=== PATIENT | female | born 1935 | race Caucasian/White ===

== ENCOUNTER 2016-07-26 16:36 | Inpatient (IN) | payer MEDICARE ==
[~2016-07-26] VITALS: Ht 167.6 cm; Wt 77.0 kg
[~2016-07-26 16:36] MED LIST: ACET650T12 PO; ALLO100T PO; ASPI81CH PO; BISA10SU4 PR; CITA20TA4 PO; FLEEENE4 PR; GABA-279 PO; IBUP-1114 PO; LIDO1OIN2 TOP; MELA5TAB14 PO; METO50TA2 PO; MIRA3350 PO; MOM30SS PO; OXYB5TAB PO; PROT1TAB2 PO; ROCA0.25 PO; SODI200S PO; VITA500C3 PO; ZITHTAB PO; [UNRECOGNIZED DRUG - CODE] XX; [UNRECOGNIZED DRUG - OTHER] PO
[2016-07-26] MEDS ORDERED: OXYB5TAB PO (17:09)
[2016-07-26] MEDS ORDERED: METO25TA PO (17:09)
[2016-07-26] MEDS ORDERED: CLAR10CA3 PO (17:09)
[2016-07-26] MEDS ORDERED: ALBU0.63 INH (17:09)
[2016-07-26] MEDS ORDERED: HYDR-3713 PO (17:09)
[2016-07-26] MEDS ORDERED: NYST100024 TOP (17:09)
[2016-07-26] MEDS ORDERED: ULOR80TA PO (17:09)
[2016-07-26] MEDS ORDERED: BUME2TAB PO (17:09)
[2016-07-26] MEDS ORDERED: ZOFR20TA PO (17:09)
[2016-07-26] MEDS ORDERED: SPIR25TA2 PO (17:09)
[2016-07-26] MEDS ORDERED: BISC10SU PR (17:09)
--- NOTE | 2016-07-26 17:33 | REP ---
Chest one-view HISTORY: Altered mental status Comparison: 06/26/2016 There is poor inspiratory effort. There is elevation of the right hemidiaphragm. The lungs are clear. The cardiac silhouette is enlarged. The pulmonary vasculature is normal in appearance. Impression: Cardiomegaly. Signed by Chele Hung MD 07/26/2016 05:25 P
[2016-07-26 17:44] LABS: MEAN CORPUSCULAR HEMOGLOBIN 32.9 pg (27.0-33.0); MEAN CORPUSCULAR HGB CONC 30.6 g/dl (32.0-36.5); MEAN CORPUSCULAR VOLUME 107.5 fl (80.0-96.0); PLATELET COUNT, AUTOMATED 123 k/mm3 (150-450); RED CELL DISTRIBUTION WIDTH 16.1 % (11.5-14.5); WHITE BLOOD COUNT 5.3 K/mm3 (4.0-10.0)
[2016-07-26] MEDS ORDERED: MELA3TAB PO (18:09)
[2016-07-26] MEDS ORDERED: ANEC4CRE3 TOP (18:09)
[2016-07-26 18:10] LABS: EOSINOPHILS 5 % (0-5)
[2016-07-26 18:11] LABS: ANISOCYTOSIS 1+; HYPOCHROMASIA 1+
[2016-07-26] MEDS ORDERED: METO25TAB PO (18:11)
[2016-07-26] MEDS ORDERED: ACET50TAOT PO (18:14)
[2016-07-26 18:22] LABS: ALBUMIN/GLOBULIN RATIO 0.91 (1.00-1.93); BILIRUBIN,DIRECT 0.2 MG/DL (0.0-0.2); BILIRUBIN,TOTAL 0.4 MG/DL (0.2-1.0); CALCIUM LEVEL 8.4 MG/DL (8.8-10.2); CREATININE FOR GFR 3.68 MG/DL (0.55-1.02); GLOMERULAR FILTRATION RATE 12.6 (>32); MAGNESIUM LEVEL 2.5 MG/DL (1.8-2.4); PHOSPHORUS LEVEL 7.3 MG/DL (2.5-4.9); POTASSIUM SERUM 5.1 MEQ/L (3.5-5.1); TOTAL PROTEIN 6.3 GM/DL (6.4-8.2)
[2016-07-26] MEDS ORDERED: ONDANSETRON 4MG/2ML VIAL (J2405) IV PRN (20:15)
[2016-07-26] MEDS ORDERED: BISACODYL 5 MG TAB PO PRN (20:15)
[2016-07-26] MEDS ORDERED: ACETAMINOPHEN TAB 650MG DOSE (2X325MG) PO PRN (20:15)
[2016-07-26] MEDS ORDERED: FLEET ENEMA PR PRN (20:30)
[2016-07-26] MEDS ORDERED: ALBUTEROL SULFATE 2.5 MG/0.5 ML INH NEB SOLN INH PRN (20:30)
[2016-07-26 20:38] LABS: THYROXINE (T4) 8.7 UG/DL (4.5-12.0)
[2016-07-26] MEDS: METOPROLOL TART 25 MG TABLET PO SCH (21:00)
[2016-07-26 22:05] VITALS: BP 120/59
--- NOTE | 2016-07-26 23:01 | HPE ---
DATE OF ADMISSION: 07/26/2016 PRIMARY CARE PHYSICIAN: Dr. Pelaez PILING CUTTER: Vernon Noble MD CHIEF COMPLAINT: Abnormal renal function. HISTORY OF PRESENT ILLNESS: Ms. James is an 80-year-old female with multiple past medical history who admitted to the hospital due to abnormal renal function. Patient is from snf at [facility] and was seen by nephrology on Sunday when they performed lab work. Patient expressed that today she received a phone call from Dr. Noble's office asking her to come to the emergency room (ER) due to abnormal lab work regarding her renal function. Patient expressed that for the past 2 weeks she has been experiencing fatigue and tiredness. Patient does not have fluid restriction and she expressed that she drinks a lot of fluids during the day. According to patient's daughter, she has been experiencing edema in her lower extremities and for the past month which became worse. Patient also expressed that she has been gaining weight, about 10-15 pounds since June. Patient denies having hematuria, however she expressed that she has some burning sensation at the beginning of urination. She also has urinary incontinence. Patient denies fever, chills, or night sweats. Patient also denies lightheadedness, vision or hearing changes. Patient denies any syncopal episodes. However, patient expressed that she feels weak all over her body for the past 2 weeks. Patient also has pulsating mass on the right upper forehead area which is related to an aneurysm which she believes that it became larger for past month. PAST MEDICAL HISTORY: 1. Peptic ulcer disease with gastrointestinal (GI) bleed about 30 years. 2. Coronary artery disease status post coronary artery bypass graft about 12 years ago. 3. Aneurysm. 4. CVA with right-sided hemiparesis. 5. Chronic kidney disease stage IV. 6. Hypertension. 7. History of kidney stones. 8. History of tobacco abuse. 9. Anxiety. 10. History of gout. ALLERGIES: 1. PENICILLIN. 2. QUINOLONES. 3. SERTRALINE. 4. LASIX. 5. INDOMETHACIN. 6. CLINDAMYCIN. 7. CARBAMAZEPINE. HOME MEDICATIONS: - acetaminophen 1000 mg by mouth twice a day - acetaminophen/hydrocodone one tablet by mouth nightly - albuterol one vial inhalation every 2 hours as needed for shortness of breath - AneCream 4% one dose topically twice a day - vitamin C 500 mg by mouth every evening - aspirin 81 mg by mouth daily - Biscolax 10 mg per rectum daily as needed for constipation - bumetanide 2 mg by mouth twice a day - calcitriol 0.25 mcg by mouth three times a week - Uloric 80 mg by mouth daily - gabapentin 100 mg by mouth three times a day - Claritin 10 mg by mouth every 2 days - melatonin 3 mg by mouth nightly - metolazone 2.5 mg by mouth twice a day - metoprolol tartrate 25 mg by mouth twice a day - nystatin powder one dose topically daily - Zofran 4 mg by mouth every 6 hours as needed for nausea or vomiting - oxybutynin 5 mg by mouth daily - MiraLax one packet by mouth every evening - Fleet enema 7-19 grams/118 mL as needed for constipation - spironolactone 25 mg by mouth twice a day FAMILY HISTORY: Patient had two brothers and one sister who due to blood clot, alcoholism, and suicide. Patient has five children, four sons and one daughter, one of the sons has a stent. SOCIAL HISTORY: Patient lives in a snf at [facility]. Patient stopped smoking 3 years ago, however patient started smoking at age 48 and on average she smoked about 2.5 packs per day. Patient denies illicit drug use or history of alcoholism or alcohol usage. Patient has not traveled outside of [facility]. Patient does not have any pets. REVIEW OF SYSTEMS: GENERAL: Patient denies fever, chills, night sweats. Patient has gained about 10-15 pounds over the past month. HEENT: Patient denies acute vision or hearing changes. Patient denies headache , however patient has pulsating mass on the right side of the forehead which, according to her, for the past month the size has increased. NECK: Patient denies lumps, bumps, or decreased motion of her neck. HEART: Patient denies palpitations, racing or skipping heart beat, or chest pain. LUNGS: Patient expressed that she has mild shortness of breath when she lays down, however patient denies coughing. ABDOMEN: Patient denies abdominal pain, nausea, vomiting, diarrhea, constipation, melena, hematochezia, or hemoptysis. NEUROLOGIC: Patient has a history of CVA with right-sided hemiparesis. However , patient denies having seizure-type activities. PHYSICAL EXAMINATION: VITAL SIGNS: Temperature 97.9, pulse 52, respiratory rate 16, blood pressure 128/58, pulse oximetry 100% on 4 liters nasal cannula. GENERAL APPEARANCE: Patient was lying in bed, in no acute distress. Patient was awake. NECK: Jugular venous distention (JVD) cannot be assessed due to extended neck. HEENT: Normocephalic, atraumatic. Pupils are equal. Oral mucous moist. HEART: Regular rate and rhythm, normal S1, S2. LUNGS: Patient has scattered rhonchi at the base of the lung. Good air movement. ABDOMEN: Soft, nontender. Positive bowel sounds in all quadrants. EXTREMITIES: Patient has mild pitting edema in both lower extremities. Patient has normal range of motion on the left lower extremity and both upper extremities, however right lower extremity range of motion has decreased. NEUROLOGIC: Cranial nerves II-XII was intact. Patient has mild sensory deficit on the right lower extremity, possibly secondary to stroke. SKIN: Patient has decubitus ulcer in the mid sacrum area with serosanguineous drainage. LABORATORY DATA: White blood cells 5.3, red blood cells 3.51, hemoglobin 11.4, hematocrit 37.7, MCV 107.5, MCH 32.9, MCHC 33.6, RDW 16.1, platelet count 123, neutrophil percentage 51, lymphocyte percentage 36, monocyte percentage 4, eosinophil percentage 5, atypical lymphocytes 4. Sodium 138, potassium 5.1, chloride 106, carbon dioxide 22, anion gap 10, BUN 104, creatinine 3.68, glomerular filtration rate 12.6, fasting glucose 111, calcium 8.4, phosphorous 7.3, magnesium 2.5, total bilirubin 0.4, direct bilirubin 0.2, AST 36, ALT 23, alkaline phosphatase 145, total protein 6.3, albumin 3, TSH 5.880. Urinalysis result is pending at this time. IMAGING: Chest xray which indicated cardiomegaly. ASSESSMENT AND PLAN: 1. Acute on chronic kidney disease. This is possibly secondary to medications including spironolactone and metolazone. she has been diagnosed with stage IV kidney disease. Patient's creatinine is increased compare to baseline and her GFR has decreased. Dr. Jose has been consulted. I will hold spironolactone and metolazone due to abnormal renal function. 2. Coronary artery disease. We will continue patient on aspirin and metoprolol. 3. Diastolic congestive heart failure: patient was on diuretics however I hold them due to worsening renal function.patient is euvolemic at this time. I will continue patient on metoprolol. 4. History of gout. We will continue patient on Uloric 80 mg by mouth daily. 5. Hypertension. We have held spironolactone and metolazone due to abnormal renal function, however we will continue patient on metoprolol 25 mg by mouth twice a day. 6. Deep venous thrombosis (DVT) prophylaxis. Patient is on heparin 5000 units subcutaneous every 8 hours. 7. Allergies. Patient is on loratadine 10 mg by mouth every 2 days. 8. Shortness of breath, possibly secondary to chronic obstructive pulmonary disease (COPD). At this time patient is stable. We will continue patient on current breathing treatment. 9. Anemia. This is possibly secondary to chronic kidney disease. Nephrology has been consulted and will make a decision regarding using medication such as aranesp. My preceptor for this patient encounter was Dr. Lona Collins. The preceptor was physically present in the building during the encounter and was fully available. As needed, all aspects of the patient interview, examination, medical decision making process, and medical care plan development were reviewed and approved by the preceptor. The preceptor is aware and concurs with the plan as stated in the body of this note and will attest to such by her cosignature. NARCISA
--- NOTE | 2016-07-26 23:30 | CR ---
DATE OF CONSULTATION: 07/26/2016 REQUESTING PHYSICIAN: Dr. Gray Rodriguez CONSULTING PHYSICIAN: Dr. Héctor Jose REASON FOR CONSULTATION: Management of acute kidney failure superimposed on chronic kidney disease stage IV. CHIEF COMPLAINT: Patient was sent by ground crewman mission support for abnormal labs and worsening renal failure. HISTORY OF PRESENT ILLNESS: Allyson James is an 80-year-old female with past medical history of chronic kidney disease stage IV with baseline creatinine of around 2.3 as of last month. She has multiple other comorbidities including congestive heart failure, hypertension, coronary artery disease. She was last seen in nephrology office on 07/19/2016. At that time she was having anasarca, she had gained a lot of weight. Because of the worsening edema, patient's diuretic dose was increased. She was asked to take Bumex twice a day, metolazone was also added to the regimen, and spironolactone dose was also increased. Patient started taking the diuretics. She did report that her lower extremity edema and generalized anasarca did significantly improve with the medications. Patient got followup labs done in [place] and the labs showed that her creatinine had bumped up to 3.5, her BUN was 98, so patient was sent to emergency room by nephrology office for further management of acute renal failure. Patient personally reports that her appetite is not good. She does report that her edema has improved. She denies any chest pain, shortness of breath, palpitations, nausea, vomiting, confusion, dizziness, or lightheadedness. Patient was examined by me today in the emergency room. She was laying in the bed, she was comfortable, in no apparent distress. PAST MEDICAL HISTORY: Patient has a past medical history of: 1. Chronic kidney disease stage IV, baseline creatinine of around 2.3. 2. Hyperparathyroidism. 3. Anemia of chronic disease. 4. Hypertension. 5. Coronary artery disease status post coronary artery bypass graft (CABG) in 2001. 6. Left hemiparesis. 7. Atrial fibrillation. 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 FAMILY HISTORY: Her mother because of natural causes. There is no history of end-stage renal disease requiring hemodialysis. SOCIAL HISTORY: Patient is . She lives at a alf in [place]. She is a former smoker. She denies any alcohol abuse or drug abuse. REVIEW OF SYSTEMS: CONSTITUTIONAL: Patient denies any fevers, chills, or fatigue. EYES: She denies any blurry vision or double vision. EARS, NOSE, THROAT (ENT); Patient denies any ear discharge, dysphagia, or odynophagia. CARDIOVASCULAR: Patient reports history of aortic valve replacement, but she denies any palpitations or chest pain. RESPIRATORY: Patient denies any cough. She does report dyspnea on mild exertion. She denies any orthopnea. GASTROINTESTINAL (GI): Patient denies any nausea or vomiting, but she reports decreased appetite. GENITOURINARY: Patient denies any dysuria or hematuria. MUSCULOSKELETAL: Patient reports that she had leg swelling which is getting better and she wears Amaury wraps on bilateral lower extremities. SKIN: Denies any rashes. She does report a left leg ulcer because of edema which is healing. CENTRAL NERVOUS SYSTEM (STOPPER GRINDER): Patient reports history of CVA and history of right-sided craniotomy because of hemorrhagic CVA. PSYCHIATRIC: Denies any history of depression or anxiety. ENDOCRINE: Patient denies diabetes but she does have hyperparathyroidism. HEMATOLOGICAL/ONCOLOGICAL: Patient denies any bruising tendency or anemia. She denies any history of cancers. All other review of systems is negative. ALLERGIES: Patient is allergic to CIPRO, CLINDAMYCIN, VANCOMYCIN, PENICILLIN, TEGRETOL, and ZOLOFT. HOME MEDICATIONS: - Tylenol as needed - albuterol as needed - aspirin 81 mg by mouth daily - bisacodyl 10 mg as needed - Bumex 2 mg one tablet by mouth twice a day - calcitriol 0.25 mcg Sunday, Sunday, Sunday - Fleet enema as needed - gabapentin 100 mg by mouth three times a day - lidocaine patch as needed - loratadine 10 mg by mouth every day - melatonin 3 mg by mouth daily - metolazone 2.5 mg by mouth twice a day - metoprolol 25 mg by mouth twice a day - MiraLax 17 grams daily - oxybutynin 5 mg by mouth daily - spironolactone 25 mg by mouth twice a day - Uloric 80 mg by mouth daily - vitamin C 500 mg by mouth daily - vitamin D 50,000 units once a month - Zofran 4 mg every 6 hours as needed PHYSICAL EXAMINATION: VITAL SIGNS: Temperature 97.2 degrees Fahrenheit, blood pressure 132/63, pulse 56, respiratory rate 16, saturating 96% on nasal cannula at 2 liters. HEAD and NECK EXAM: Extraocular muscles intact. Pupils equally round and reactive to light. Mucous membranes are moist. Neck is supple, there is no significant jugular venous distention (JVD). Patient has a defect at the right temporal region craniotomy site which is pulsating with a heart beat. CARDIOVASCULAR: S1, S2. Patient has a mechanical aortic valve. Otherwise no murmur, rub, or gallop. RESPIRATORY: Chest is clear to auscultation bilaterally. Bilateral equal air entry. No rales or rhonchi. ABDOMEN: Soft, positive bowel sounds, nontender. No ascites. No organomegaly. EXTREMITIES: No clubbing or cyanosis. Patient has 1+ edema of the bilateral lower extremities and extremities are wrapped in dressings and she has small ulceration of the left leg as well. STOPPER GRINDER: Patient has slight left-sided hemiparesis. Otherwise, she is awake, alert , oriented times three. No asterixis at this time. PSYCHIATRIC: Normal mood and affect. SKIN: No rashes and no ulcerations apart from the ulceration on the left leg. LABORATORY REVIEW: CBC showed WBC 5.3, hemoglobin 11.5, platelets 123. BMP showed sodium 138, potassium 5.1, chloride 106, bicarbonate 22, BUN 104, creatinine 3.68, GFR 12.6, calcium 8.4, phosphorous 7.3, magnesium 2.5, albumin 3, TSH 5.8, free T4 is 3. IMAGING: A chest xray done today in the emergency room showed poor inspiratory effort, cardiomegaly, otherwise the pulmonary vasculature was normal in appearance. ASSESSMENT: 80-year-old female with past medical history of chronic kidney disease stage IV, chronic diastolic congestive heart failure, hypertension, coronary artery disease status post coronary artery bypass graft (CABG), admitted at this time because of acute kidney injury superimposed on chronic kidney disease stage IV. PLAN: 1. Acute kidney injury superimposed on chronic kidney disease stage IV. Patient's baseline creatinine is 2.3. Creatinine in the emergency room today is 3.6, it is most likely secondary to aggressive diuresis with Bumex, spironolactone, and metolazone. I am going to hold all the diuretics at this time. I would not hydrate the patient. However, I would see if by holding the diuretics her renal function starts improving. There are no overt signs of uremia. Electrolytes are acceptable. No urgent need to do hemodialysis. I would observe the patient for the next 24-48 hours for improvement of the renal function. If the renal function does not improve, then patient will need to start hemodialysis. 2. Diastolic congestive heart failure. Patient reports that she was significantly volume overloaded and diuretics have helped her a lot. However, because of the aggressive diuresis patient's renal function is worse than her baseline. I am going to hold the diuretics at this time. Patient's volume status is well-optimized. Continue the metoprolol at this time. Continue to monitor daily intake and output and 24 hour urine output as well. 3. Chronic gout secondary to chronic kidney disease. Continue current dose of Uloric 80 mg by mouth daily. 4. Secondary hyperparathyroidism. Continue current dose of calcitriol 0.25 mcg by mouth Sunday, Sunday, Sunday. 5. Chronic kidney disease-mineral bone disease. The patient has hyperphosphatemia. I am going to start the patient on Renvela 1600 mg by mouth three times a day with meals. Please hold Fleet enema because it has a lot of phosphorous and it can cause further worsening of the renal failure. 6. Anemia in chronic kidney disease. Patient's hemoglobin is 11.5. No need of Aranesp administration at this time, however I am going to check the iron levels on this patient tomorrow morning. Thank you for involving us in the care of this patient. We shall be happy to follow the patient along with you tomorrow morning. Plan of care was discussed with the primary medical team, medical education manager, and with the patient's nurse at bedside in the emergency room. NARCISA
[2016-07-27] MEDS: HEPARIN SOD (PORCINE) 5000 UNITS/ML VIAL SC SCH ×4 (00:10→22:00)
[2016-07-27] MEDS: GABAPENTIN 100 MG CAP PO SCH ×4 (00:11→22:01)
[2016-07-27] MEDS: NORCO, ANEXSIA 5/325MG TABLET (HYDROcodone/ACETAMINOPHEN) PO SCH ×2 (00:11→22:01)
[2016-07-27 06:00] VITALS: BP 135/63
[2016-07-27 06:55] LABS: IONIZED CALCIUM 4.8 MG/DL (4.5-5.3)
[2016-07-27 07:26] LABS: ALBUMIN 2.8 GM/DL (3.2-5.2); CALCIUM LEVEL 8.6 MG/DL (8.8-10.2); CREATININE FOR GFR 3.45 MG/DL (0.55-1.02); GLOMERULAR FILTRATION RATE 13.5 (>32); MAGNESIUM LEVEL 2.6 MG/DL (1.8-2.4); PHOSPHORUS LEVEL 7.3 MG/DL (2.5-4.9); POTASSIUM SERUM 4.4 MEQ/L (3.5-5.1)
[2016-07-27] MEDS ORDERED: BUMETANIDE 1 MG TAB PO SCH (08:00)
[2016-07-27 08:15] LABS: MEAN CORPUSCULAR HGB CONC 30.4 g/dl (32.0-36.5); MEAN CORPUSCULAR VOLUME 105.1 fl (80.0-96.0); RED CELL DISTRIBUTION WIDTH 16.1 % (11.5-14.5); WHITE BLOOD COUNT 6.4 K/mm3 (4.0-10.0)
[2016-07-27] MEDS: (RENVELA) SEVELAMER **CARBONate** 800 MG TAB PO SCH ×3 (08:38→18:56)
[2016-07-27] MEDS: ASPIRIN 81 MG CHEW TABLET PO SCH (08:39)
[2016-07-27] MEDS: LORATADINE 10 MG TAB PO SCH (08:42)
[2016-07-27] MEDS: ACETAMINOPHEN 500 MG TAB PO SCH ×2 (08:43→22:01)
[2016-07-27] MEDS: FEBUXOSTAT 40 MG TABLET (ULORIC) PO SCH (08:46)
[2016-07-27] MEDS: METOPROLOL TART 25 MG TABLET PO SCH ×2 (08:46→21:00)
[2016-07-27] MEDS: NYSTATIN 100,000 UNITS/GM TOPICAL PWD 15 GM TOP SCH (08:46)
[2016-07-27] MEDS: oxyBUTYnin *DITROPAN XL* 5 MG TABCR PO SCH (08:46)
[2016-07-27 08:59] LABS: PERCENT SATURATION 16.6 % (13.2-37.4)
--- NOTE | 2016-07-27 10:08 | ECGEPIP ---
Stationary ECG Study [facility] [place] - ED Test Date: 2016-07-26 Pat Name: MELISSA HORN Department: Room: - Gender: F [employer]: dinora : 1935 Requested By: Anika Mancera Order Number: [id number] Reading MD: Anika Mancera Measurements Intervals [place] Rate: 47 P: LA: 0 QRS: -31 QRSD: 81 T: 64 QT: 446 QTc: 397 Interpretive Statements ATRIAL FIBRILLATION WITH SLOW VENTRICULAR RESPONSE MARKED LEFT AXIS DEVIATION LOW QRS VOLTAGE IN PRECORDIAL LEADS POSSIBLE ANTERIOR MYOCARDIAL INFARCTION, PROBABLY OLD DECREASED RATE 09/03/14 Electronically Signed On 07-27-2016 10:08:08 EDT by Anika Mancera
[2016-07-27] MEDS ORDERED: IRON SUCROSE 100 MG/5 ML INJ (J1756) IV SCH (10:30)
--- NOTE | 2016-07-27 11:49 | IPNPDOC ---
Subjective Date Seen The patient was seen on 07/27/16. Subjective Chief Complaint/HPI The patient is a 80-year-old female admitted with a reason for visit of Acute Kidney Failure. General: Denies: Chills, Night Sweats Constitutional: Denies: Chills, Fever Eyes: Denies: Pain, Vision change ENT: Denies: Head Aches, Ear Pain Skin: Denies: Rash Pulmonary: Denies: Dyspnea, Cough Cardiovascular: Denies: Chest Pain, Palpitations Gastrointestinal: Denies: Nausea, Vomiting Genitourinary: Denies: Dysuria, Frequency Hematologic: Denies: Bruising, Bleeding Excessively Objective Physical Examination General Exam: Positive: Alert, Cooperative, No Acute Distress ENT Exam: Positive: Mucous membr. moist/pink, Other ENT (right Temporal region noted to have a pulsating beat 2/2 craniotomy) Chest Exam: Positive: Clear to auscultation, Normal air movement Heart Exam: Positive: Rate Normal, Normal S1, Normal S2 Abdomen Exam: Positive: Soft, Negative: Tenderness Extremity Exam: Positive: Other (1+ edema in the L/E B/L. Chronic leg ulcer noted on the dorsal aspect of the left leg) Assessment /Plan Plan/VTE VTE Prophylaxis Ordered?: Yes Plan Acute Kidney Injury Superimposed on Chronic Kidney Disease Baseline Stage IV kidney disease (Serum Creatinine 2.3 increased to 3.5 as outpatient) All diuretics and nephrotoxins have been held at this time There is currently a consideration for possible dialysis for the patient if her renal function does not improve At this time her electrolytes remain stable, and there is no urgent need for dialysis. Nephrology on board Diastolic congestive heart failure At this time, the patient does appear to be mildly fluid overloaded. However this is a significant improvement compared to her previous state according to the patient. Diuretics have been held secondary to above The patient is currently resting comfortably on room air We will continue to monitor her respiratory/fluid balance status Coronary artery disease s/p CABG Continue Aspirin, Metoprolol 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 Hypertension Continue on metoprolol 25 mg by mouth Diuretics being held 2/2 above Deep venous thrombosis (DVT) prophylaxis Heparin 5000 units subcutaneously every 8 hours. Disposition-the patient is a resident of [facility], and her care will be transitioned there once she is medically optimized here. VS, I&O, 24H, Omkar Vital Signs/I&O Vital Signs Date Time Temp Pulse Resp B/P (MAP) Pulse Ox O2 Delivery O2 Flow Rate FiO2 07/27/16 09:00 Nasal Cannula 2.0 07/27/16 08:46 57 07/27/16 06:00 97.8 19 135/63 (87) 96 I&O- Last 24 Hours up to 6 AM 07/27/16 06:00 Intake Total 240 ml Output Total 0 ml Balance 240 ml Laboratory Data 24H LABS Laboratory Tests 2 07/26/16 17:33: Neutrophils 51, Lymphocytes (Manual) 36, Monocytes (Manual) 4, Eosinophils ( Manual) 5, Atypical Lymphocytes 4, Platelet Estimate DECREASED, Polychromasia , Hypochromasia 1+, Anisocytosis 1+, Macrocytosis 2+, Anion Gap 10, Glomerular Filtration Rate 12.6L, Calcium Level 8.4L, Phosphorus Level 7.3H, Magnesium Level 2.5H, Aspartate Amino Transf (AST/SGOT) 36, Alanine Aminotransferase (ALT/ SGPT) 23, Alkaline Phosphatase 145H, Total Bilirubin 0.4, Direct Bilirubin 0.2, Total Protein 6.3L, Albumin 3.0L, Albumin/Globulin Ratio 0.91L, Thyroid Stimulating Hormone (TSH) 5.880H, Free Thyroxine Index 3.0, Thyroxine (T4) 8.7, Triiodothyronine (T3) Uptake 34 07/27/16 06:43: Anion Gap 11, Glomerular Filtration Rate 13.5L, Calcium Level 8.6L, Phosphorus Level 7.3H, Magnesium Level 2.6H, Albumin 2.8L, Blood Urea Nitrogen 104H, Creatinine 3.45H, Sodium Level 139, Potassium Level 4.4, Chloride Level 107, Carbon Dioxide Level 21, Whole Blood Ionized Calcium 4.8, Iron Level 36L, Total Iron Binding Capacity 217L, Transferrin % Saturation 16.6, Ferritin 74, Triglycerides Level 109, Total Cholesterol 61, LDL Cholesterol 12.2, Non-HDL Cholesterol (LDL + VLDL) 34, Total HDL Cholesterol 27L, Cholesterol/HDL Ratio 2.259, Parathyroid Hormone (Intact) 52.8 07/27/16 08:32: Estimated Mean Plasma Glucose 131H, Hemoglobin A1c 6.2 07/27/16 09:29: CBC/BMP Laboratory Tests 07/26/16 17:33 Red Blood Count 3.51 L, Mean Corpuscular Volume 107.5 H, Mean Corpuscular Hemoglobin 32.9, Mean Corpuscular Hemoglobin Concent 30.6 L, Red Cell Distribution Width 16.1 H 07/27/16 06:43 Anion Gap 11 07/27/16 07:55 Red Blood Count 3.37 L, Mean Corpuscular Volume 105.1 H, Mean Corpuscular Hemoglobin 32.0, Mean Corpuscular Hemoglobin Concent 30.4 L, Red Cell Distribution Width 16.1 H NAOMI HAGAN MD July 27, 2016 11:49
[2016-07-27 14:00] VITALS: BP 110/50
[2016-07-27] MEDS ORDERED: HEPARIN 1,000 UNITS/ML 10ML VIAL (FOR RADIOLOGY& DIALYSIS ONLY) As Ordered ONE (16:26)
[2016-07-27] MEDS ORDERED: LIDOCAINE W/EPINEPHRINE 1% 20ML VIAL As Ordered ONE (16:26)
--- NOTE | 2016-07-27 17:53 | REPKIM ---
CLINICAL HISTORY: Renal failure, CVA, HTN, CAD and s/p CABG. The referring service has requested a tunneled dialysis catheter placement for hemodialysis. PROCEDURE PERFORMED: Right IJ Tunneled Hemodialysis Catheter Placement INTERVENTIONALIST: Clark Callejas MD CONSENT: The risks, benefits and alternatives to the procedure were explained to the patient and informed written consent was obtained. MEDICATIONS: Local Lidocaine EBL: less than 10 mL DEVICE USED: 14.5-Wallisian 19-cm tip to cuff EvenMore Catheter Lot#[id number] FLUORO TIME: 0.2 minutes PROCEDURE/FINDINGS: The patient was brought to the interventional radiology suite where a timeout procedure was performed. The patient was placed in the supine position. The right neck and upper chest were prepped and draped in the usual sterile fashion. Real time ultrasound was used and permanent image stored. Using ultrasound guidance the internal jugular vein was punctured with a micropunture needle, after infiltration of the skin and deep tissues with local anesthetic. A 19-cm tip to cuff length, 14.5-Wallisian dual lumen EvenMore hemodialysis catheter was inserted. The catheter was placed through a subcutaneous tunnel requiring a second incision. The incision at the base of the neck was closed with 4-0 Vicryl suture and covered with steristrips. The catheter was secured at the skin exit site with 2-0 Prolene suture. The ports of the catheter were locked with heparin (1000 units/mL). A sterile dressing was then applied. Post procedure chest fluoroscopy showed the tip of the catheter at the cavoatrial junction. The patient tolerated the procedure well with no immediate complications. This procedure was performed using ultrasound and fluoroscopy. Dr. Callejas was present. IMPRESSION: 1. Ultrasound of the neck demonstrates patent right IJ vein and compressible. 2. Successful right IJ tunneled hemodialysis catheter placement as discussed above. There is free aspiration of blood from all ports of the catheter. The catheter is ready for immediate use. cc: MD Héctor Brady MD [facility]ou[facility]
[2016-07-27 20:05] VITALS: BP 126/60
[2016-07-27] MEDS ORDERED: ASCORBIC ACID 500 MG TAB PO SCH (21:00)
[2016-07-27] MEDS: MIRALAX *UNIT DOSE* 17GM PACKET PO SCH (22:01)
--- NOTE | 2016-07-27 22:07 | IPN ---
DATE: 07/27/2016 SUBJECTIVE: Patient was seen and examined at the bedside today in the morning. Last night's events are noted. She denies any chest pain or shortness of breath. She denies any nausea or vomiting. Patient's renal function is not significantly improved despite holding the diuretics. Patient reports a decreased appetite and she is showing early signs of uremia at this time. REVIEW OF SYSTEMS: Patient denies any fevers, chills, rigors, headache, nausea, vomiting, chest pain, shortness of breath, pain in abdomen, constipation, or diarrhea. She does report decreased appetite and she does report persistent lower extremity edema. OBJECTIVE: VITAL SIGNS: Temperature 98.1 degrees Fahrenheit, blood pressure 110/50, pulse 52, respiratory rate 16, saturating at 97% on nasal cannula at 2 liters per minute. Intake and output: Urine output is not recorded well. Patient had four incontinent voids so far today since overnight. PHYSICAL EXAMINATION: GENERAL: Patient is awake, alert, oriented times two, laying in bed, in no apparent distress. HEAD and NECK EXAM: Extraocular muscles intact. Pupils are equally round and reactive to light. Mucous membranes are moist. Neck is supple, there is no jugular venous distention (JVD). Patient has a defect in the right temporal region, craniotomy site, which is pulsating with heart beat. CARDIOVASCULAR: S1, S2. Patient has mechanical aortic valvular click. Otherwise no murmur, rub, or gallop. RESPIRATORY: Chest is clear to auscultation bilaterally. Bilateral equal air entry. No rales or rhonchi. ABDOMEN: Soft. Positive bowel sounds. Nontender. No ascites. No organomegaly. EXTREMITIES: No clubbing or cyanosis. Patient has 1+ edema of the bilateral lower extremities and patient has healed wounds on the left leg as well. CENTRAL NERVOUS SYSTEM (DOCUMENTATION MANAGER): Patient has slight left-sided hemiparesis. Patient is awake and oriented times two. Patient has mild asterixis and she is unable to do serial three subtraction. LABORATORY REVIEW: CBC showed WBC 6.4, hemoglobin 10.8, platelets 104. BMP showed sodium 139, potassium 4.4, chloride 107, bicarbonate 21, BUN 104, creatinine 3.4, calcium 8.6, phosphorous 7.3, magnesium 2.6. CURRENT MEDICATIONS: Patient's medications were all reviewed by me. I have stopped the vitamin C. Diuretics were already stopped yesterday. There is no other change in the medications today as compared with yesterday. ASSESSMENT: 80-year-old female with past medical history of chronic kidney disease stage IV, chronic diastolic congestive heart failure, hypertension, coronary artery disease status post coronary artery bypass graft (CABG), admitted at this time because of acute kidney injury superimposed on chronic kidney disease stage IV. PLAN: 1. Acute kidney injury superimposed on chronic kidney disease stage IV. Patient has progressed to end-stage renal disease. She is showing early signs of uremia. I discussed the hemodialysis option. Patient finally agreed to start hemodialysis. She will get the Permacath placement today and we shall start the hemodialysis starting from tomorrow. The electrolytes are within the acceptable limits at this time. 2. Diastolic congestive heart failure. Patient was aggressively diuresed in the last 2 weeks. That did help get rid of some fluid overload, but patient is in renal failure at this time. I have stopped the diuretics. Volume will be optimized with hemodialysis now. 3. Chronic gout secondary to chronic kidney disease. Continue current dose of Uloric 80 mg by mouth daily. 4. Anemia in chronic kidney disease. Patient's hemoglobin is more than 11. No need of Aranesp administration at this time. 5. Secondary hyperparathyroidism. Continue current dose of calcitriol. 6. Chronic kidney-disease mineral bone disease. Continue current dose of Renvela 1600 mg by mouth three times a day with meals. Phosphorous level will also improve with hemodialysis.
[2016-07-28 02:00] VITALS: BP 165/80
[2016-07-28 05:19] LABS: MEAN CORPUSCULAR HEMOGLOBIN 32.4 pg (27.0-33.0); MEAN CORPUSCULAR HGB CONC 30.7 g/dl (32.0-36.5); MEAN CORPUSCULAR VOLUME 105.3 fl (80.0-96.0); RED CELL DISTRIBUTION WIDTH 16.3 % (11.5-14.5); WHITE BLOOD COUNT 6.2 K/mm3 (4.0-10.0)
[2016-07-28 05:35] LABS: ALBUMIN 2.7 GM/DL (3.2-5.2); CALCIUM LEVEL 8.6 MG/DL (8.8-10.2); CREATININE FOR GFR 3.04 MG/DL (0.55-1.02); GLOMERULAR FILTRATION RATE 15.7 (>32); MAGNESIUM LEVEL 2.5 MG/DL (1.8-2.4); PHOSPHORUS LEVEL 6.2 MG/DL (2.5-4.9); POTASSIUM SERUM 4.9 MEQ/L (3.5-5.1)
[2016-07-28] MEDS: HEPARIN SOD (PORCINE) 5000 UNITS/ML VIAL SC SCH ×2 (06:00→14:01)
[2016-07-28 06:10] VITALS: BP 147/68
[2016-07-28] MEDS: NYSTATIN 100,000 UNITS/GM TOPICAL PWD 15 GM TOP SCH (09:00)
[2016-07-28 10:29] LABS: HEPATITIS B SURFACE ANTIBODY NEGATIVE (POSITIVE)
[2016-07-28] MEDS ORDERED: HEPARIN 1,000 UNITS/ML 10ML VIAL (FOR RADIOLOGY& DIALYSIS ONLY) XX ONE (10:30)
[2016-07-28] MEDS: (RENVELA) SEVELAMER **CARBONate** 800 MG TAB PO SCH ×3 (11:46→17:05)
[2016-07-28] MEDS: CALCITRIOL 0.25 MCG CAP (S0169) PO SCH (12:01)
[2016-07-28] MEDS: FEBUXOSTAT 40 MG TABLET (ULORIC) PO SCH (12:01)
[2016-07-28] MEDS: ASPIRIN 81 MG CHEW TABLET PO SCH (12:02)
[2016-07-28] MEDS: GABAPENTIN 100 MG CAP PO SCH ×3 (12:02→20:47)
[2016-07-28] MEDS: ACETAMINOPHEN 500 MG TAB PO SCH ×2 (12:02→20:46)
[2016-07-28] MEDS: oxyBUTYnin *DITROPAN XL* 5 MG TABCR PO SCH (12:02)
[2016-07-28] MEDS: METOPROLOL TART 25 MG TABLET PO SCH ×2 (12:03→20:47)
--- NOTE | 2016-07-28 13:08 | IPNPDOC ---
Subjective Date Seen The patient was seen on 07/28/16. Subjective Chief Complaint/HPI The patient is a 80-year-old female admitted with a reason for visit of Acute Kidney Failure. General: Denies: Chills, Night Sweats Constitutional: Denies: Chills, Fever Eyes: Denies: Pain, Vision change ENT: Denies: Head Aches, Ear Pain Pulmonary: Denies: Dyspnea, Cough Cardiovascular: Denies: Chest Pain, Palpitations Gastrointestinal: Denies: Nausea, Vomiting Objective Physical Examination General Exam: Positive: Alert, Cooperative, No Acute Distress ENT Exam: Positive: Mucous membr. moist/pink, Other ENT (right Temporal region noted to have a pulsating beat 2/2 craniotomy) Chest Exam: Positive: Clear to auscultation, Normal air movement Heart Exam: Positive: Rate Normal, Normal S1, Normal S2 Abdomen Exam: Positive: Soft, Negative: Tenderness Extremity Exam: Positive: Other (1+ edema in the L/E B/L. Chronic leg ulcer noted on the dorsal aspect of the left leg) Assessment /Plan Plan/VTE VTE Prophylaxis Ordered?: Yes Plan Acute Kidney Injury Superimposed on Chronic Kidney Disease Baseline Stage IV kidney disease (Serum Creatinine 2.3 increased to 3.5 as outpatient) All diuretics and nephrotoxins have been held since admission Patient had a Right IJ Tunneled Dialysis Catheter placed yesterday Scheduled for Dialysis this morning Nephrology on board Diastolic congestive heart failure At this time, the patient does appear to be mildly fluid overloaded. However this is a significant improvement compared to her previous state according to the patient. 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 Hypertension Continue on metoprolol 25 mg by mouth Diuretics being held 2/2 above Deep venous thrombosis (DVT) prophylaxis Heparin 5000 units subcutaneously every 8 hours. Disposition-the patient is a resident of [facility], and her care will be transitioned there once she is medically optimized here. VS, I&O, 24H, Fishbone Vital Signs/I&O Vital Signs Date Time Temp Pulse Resp B/P (MAP) Pulse Ox O2 Delivery O2 Flow Rate FiO2 5/5/17 12:03 62 174/92 07/28/16 06:10 98.1 18 97 High Flow Cannula 2.0 I&O- Last 24 Hours up to 6 AM 07/28/16 05:59 Intake Total 1080 ml Output Total 0 ml Balance 1080 ml Laboratory Data 24H LABS Laboratory Tests 2 07/28/16 04:47: Blood Urea Nitrogen 98H, Creatinine 3.04H, Sodium Level 140, Potassium Level 4.9 , Chloride Level 107, Carbon Dioxide Level 24, Anion Gap 9, Glomerular Filtration Rate 15.7L, Calcium Level 8.6L, Phosphorus Level 6.2H, Magnesium Level 2.5H, Albumin 2.7L CBC/BMP Laboratory Tests 07/28/16 04:47 Red Blood Count 3.12 L, Mean Corpuscular Volume 105.3 H, Mean Corpuscular Hemoglobin 32.4, Mean Corpuscular Hemoglobin Concent 30.7 L, Red Cell Distribution Width 16.3 H, Anion Gap 9 NAOMI HAGAN MD July 28, 2016 13:08
[2016-07-28 14:00] VITALS: BP 118/78
[2016-07-28] MEDS: MIRALAX *UNIT DOSE* 17GM PACKET PO SCH (20:46)
[2016-07-28] MEDS: NORCO, ANEXSIA 5/325MG TABLET (HYDROcodone/ACETAMINOPHEN) PO SCH (20:47)
--- NOTE | 2016-07-28 21:15 | IPN ---
DATE: 07/28/2016 SUBJECTIVE: The patient was seen and examined at the bedside today in the morning during hemodialysis procedure. The patient got the PermaCath placement yesterday. She is starting her first ever session of hemodialysis today. She is tolerating the hemodialysis well. She does not have any active complaints. REVIEW OF SYSTEMS: The patient denies any fevers, chills, rigors, headaches, nausea, vomiting, chest pain, shortness of breath. She does report lower extremity edema. The patient also reports an ulcer in the gluteal region that is bothering her. Rest of review of systems is negative. OBJECTIVE: VITAL SIGNS: Temperature is 98.1 degrees Fahrenheit. Blood pressure is 147/68, pulse is 69, respiratory rate 18, saturating 97% on nasal cannula. INTAKE AND OUTPUT: Urine output is recorded overnight is 200 mL. Weight in the bed scale is 62.7 kg. PHYSICAL EXAMINATION: GENERAL: The patient is awake, alert, and oriented times two, lying in bed, no apparent distress. Getting hemodialysis done. HEAD/NECK: Extraocular muscles intact. Pupils equal, round, and reactive to light. Mucous membranes are moist. Neck is supple. There is no jugular venous distention (JVD). The patient has a defect in the temporal region, craniotomy site, which is pulsating. The patient has a right internal jugular (IJ) tunneled hemodialysis catheter as well. CARDIOVASCULAR: S1, S2. Patient has mechanical aortic valvular click. RESPIRATORY: Chest is clear to auscultation bilaterally. Bilateral equal air entry. No rales or rhonchi. ABDOMEN: Soft. Positive bowel sounds. Nontender. No ascites. No organomegaly. EXTREMITIES: No clubbing or cyanosis. Patient has 1+ pitting edema of the bilateral lower extremities and she has healed wound on the left leg. CENTRAL NERVOUS SYSTEM (MINISTER): No focal neurological deficit apart from slight left hemiparesis. She is awake and alert, oriented times two. LABORATORY DATA: CBC showed a WBC of 6.2, hemoglobin is 10.1, platelets are 106. BMP shows sodium 140, potassium 4.9, chloride 107, bicarbonate 24, BUN 98, creatinine is 3.04. Calcium is 8.6, phosphorus is 6.2, magnesium is 2.5, albumin is 2.7. CURRENT MEDICATIONS: The patient's medications were all reviewed by me. She has been started on calcitriol every Sunday, Sunday, Sunday. ASSESSMENT: An 80-year-old female with past medical history of chronic kidney disease stage IV, diastolic congestive heart failure, hypertension, coronary artery disease status post coronary artery bypass graft (CABG), admitted this time because of acute kidney injury superimposed on chronic kidney disease stage IV. PLAN: 1. Acute kidney injury. It has progressed to end-stage renal disease. The patient got the permanent dialysis catheter placed yesterday and she is getting the first session of hemodialysis today. We shall do the hemodialysis today for two hours. She will get another hemodialysis tomorrow for three hours. 2. Diastolic congestive heart failure. The patient was aggressively diuresed for generalized anasarca. That did help with the congestive heart failure (CHF) and took some fluid off, but patient is in end-stage renal disease at this time. Diuretics have been held. We shall manage the fluid with hemodialysis now. 3. Anemia in end-stage renal disease. The patient's hemoglobin is in acceptable range; however, she does have iron deficiency. She is going to get Venofer with each hemodialysis session, and total dose will be 1 gram. 4. Secondary hyperparathyroidism. Continue current dose of calcitriol Sunday, Sunday, Sunday. 5. Chronic kidney disease, mineral bone disease. Continue Renvela 1600 mg by mouth three times a day with meals. 6. Chronic gout secondary to chronic kidney disease. Continue current dose of Uloric 80 mg by mouth daily.
[2016-07-28 22:00] VITALS: BP 124/60
[2016-07-29 06:00] VITALS: BP 145/67
[2016-07-29 06:29] LABS: ALBUMIN 2.4 GM/DL (3.2-5.2); CALCIUM LEVEL 8.2 MG/DL (8.8-10.2); CREATININE FOR GFR 1.87 MG/DL (0.55-1.02); GLOMERULAR FILTRATION RATE 27.4 (>32); MAGNESIUM LEVEL 2.4 MG/DL (1.8-2.4); PHOSPHORUS LEVEL 3.3 MG/DL (2.5-4.9); POTASSIUM SERUM 4.3 MEQ/L (3.5-5.1)
[2016-07-29 06:30] LABS: MEAN CORPUSCULAR HEMOGLOBIN 32.5 pg (27.0-33.0); MEAN CORPUSCULAR HGB CONC 30.1 g/dl (32.0-36.5); MEAN CORPUSCULAR VOLUME 108.1 fl (80.0-96.0); RED CELL DISTRIBUTION WIDTH 16.2 % (11.5-14.5); WHITE BLOOD COUNT 5.6 K/mm3 (4.0-10.0)
[2016-07-29] MEDS: FEBUXOSTAT 40 MG TABLET (ULORIC) PO SCH (06:45)
[2016-07-29] MEDS: GABAPENTIN 100 MG CAP PO SCH ×3 (06:45→20:26)
[2016-07-29] MEDS: METOPROLOL TART 25 MG TABLET PO SCH ×2 (06:46→20:28)
[2016-07-29] MEDS: ASPIRIN 81 MG CHEW TABLET PO SCH (06:46)
[2016-07-29] MEDS: LORATADINE 10 MG TAB PO SCH (06:50)
[2016-07-29] MEDS: oxyBUTYnin *DITROPAN XL* 5 MG TABCR PO SCH (06:50)
[2016-07-29] MEDS: ACETAMINOPHEN 500 MG TAB PO SCH ×2 (06:50→20:27)
[2016-07-29] MEDS: (RENVELA) SEVELAMER **CARBONate** 800 MG TAB PO SCH ×3 (08:08→17:23)
[2016-07-29] MEDS: NYSTATIN 100,000 UNITS/GM TOPICAL PWD 15 GM TOP SCH (08:08)
[2016-07-29 08:21] LABS: REASON FOR REVIEW COMPREHENSIVE REVIEW
[2016-07-29] MEDS ORDERED: diphenhydrAMINE CREAM 30GM TOP PRN ×2 (11:30→11:43)
--- NOTE | 2016-07-29 11:44 | IPNPDOC ---
Subjective Date Seen The patient was seen on 07/29/16. Subjective Chief Complaint/HPI The patient is a 80-year-old female admitted with a reason for visit of Acute Kidney Failure. General: Denies: Chills, Night Sweats Constitutional: Denies: Chills, Fever Eyes: Denies: Pain, Vision change ENT: Denies: Head Aches, Ear Pain Skin: Denies: Rash, Lesions Pulmonary: Denies: Dyspnea, Cough Cardiovascular: Denies: Chest Pain, Palpitations Gastrointestinal: Denies: Nausea Genitourinary: Denies: Dysuria, Frequency Objective Physical Examination General Exam: Positive: Alert, Cooperative, No Acute Distress ENT Exam: Positive: Mucous membr. moist/pink, Other ENT (right Temporal region noted to have a pulsating beat 2/2 craniotomy) Chest Exam: Positive: Clear to auscultation, Normal air movement, Other (Right IJ Dialysis Catheter noted) Heart Exam: Positive: Rate Normal, Normal S1, Normal S2 Abdomen Exam: Positive: Soft, Negative: Tenderness Extremity Exam: Positive: Other (1+ edema in the L/E B/L. Chronic leg ulcer noted on the dorsal aspect of the left leg) Assessment /Plan Plan/VTE VTE Prophylaxis Ordered?: Yes Plan Acute Kidney Injury Superimposed on Chronic Kidney Disease Baseline Stage IV kidney disease (Serum Creatinine 2.3 increased to 3.5 as outpatient) All diuretics and nephrotoxins have been held since admission Patient had a Right IJ Tunneled Dialysis Catheter placed on 07/27/16 s/p 2 Hour dialysis session yesterday, plan is for a 3 hour dialysis session today Nephrology on board Diastolic congestive heart failure The patient is currently resting comfortably on room air Lower Extremities with 2+ B/L edema Patient's fluid status will be managed with Dialysis as per Nephro Coronary artery disease s/p CABG Continue Aspirin, Metoprolol 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 Hypertension Continue on metoprolol 25 mg by mouth Diuretics being held 2/2 above Thrombocytopenia Appears to be chronic as the patient was noted to have thrombocytopenia on lab work in 2014 No active bleeding noted at this time Will order a peripheral smear for further delineation of etiology Deep venous thrombosis (DVT) prophylaxis TEDs Disposition-the patient is a resident of [facility], and her care will be transitioned there once she is medically optimized here. VS, I&O, 24H, Fishbone Vital Signs/I&O Vital Signs Date Time Temp Pulse Resp B/P (MAP) Pulse Ox O2 Delivery O2 Flow Rate FiO2 07/29/16 09:00 Nasal Cannula 2.0 07/29/16 06:46 60 145/67 07/29/16 06:00 98.2 22 99 I&O- Last 24 Hours up to 6 AM 07/29/16 05:59 Intake Total 1200 ml Output Total 800 ml Balance 400 ml Laboratory Data 24H LABS Laboratory Tests 2 07/29/16 05:48: Differential Slide Review Report, Differential Pathologist's Review COMPREHENSIVE REVIEW, Peripheral Blood Smear Path Consult PERIPHERAL SMEAR, Blood Urea Nitrogen 53H, Creatinine 1.87H, Sodium Level 143, Potassium Level 4.3 , Chloride Level 111H, Carbon Dioxide Level 24, Anion Gap 8, Glomerular Filtration Rate 27.4L, Calcium Level 8.2L, Phosphorus Level 3.3#, Magnesium Level 2.4, Albumin 2.4L CBC/BMP Laboratory Tests 07/29/16 05:48 Red Blood Count 3.03 L, Mean Corpuscular Volume 108.1 H, Mean Corpuscular Hemoglobin 32.5, Mean Corpuscular Hemoglobin Concent 30.1 L, Red Cell Distribution Width 16.2 H, Anion Gap 8 NAOMI HAGAN MD July 29, 2016 11:44
[2016-07-29] MEDS ORDERED: HEPARIN 1,000 UNITS/ML 10ML VIAL (FOR RADIOLOGY& DIALYSIS ONLY) XX ONE (12:00)
[2016-07-29 13:04] VITALS: BP 121/47
[2016-07-29 14:00] VITALS: BP 146/62
--- NOTE | 2016-07-29 15:57 | IPN ---
DATE: 07/29/2016 Mrs. James is seen this morning on her bedside during hemodialysis. She was admitted with advanced renal failure and congestive heart failure. She has bilateral small kidneys on a recent CT scan of abdomen and pelvis. She has known history of advanced stage IV chronic kidney disease at baseline and has recently developed acute renal failure. She did not respond very well to high-dose diuretics as an outpatient. She was admitted and we have tried to diurese her with intravenous diuretics without much success. She has been dialyzed twice and some fluid removed. She is still edematous but not short of breath at present. She is being dialyzed again today with a plan to remove about 1.5 liters of fluid today. PHYSICAL EXAMINATION: She is awake, alert and oriented times three. Temperature is 98.2 degrees Fahrenheit, heart rate 60 per minute and respiratory rate 22 per minute. Blood pressure 145/67 mmHg and oxygen saturation 99% on 2 liters oxygen. Face is edematous. Right-sided frontal craniotomy defect is present with pulsations. Neck veins are markedly distended. Neck is supple and without any thyroid enlargement. Oral mucosa is moist and healthy. Dialysis catheter is present in right internal jugular vein. Heart sounds are regular and there is no pericardial friction rub. Lungs with diminished breath sounds at bases bilaterally. Abdomen is distended and soft. There is no tenderness and bowel sounds are normal. Extremities have no cyanosis or clubbing. Skin is without any rash or ulcers. Neurologically she is awake, alert and oriented times three. She has known history of prior stroke with left hemiparesis which is unchanged. Today's labs show WBC count 5.6, hemoglobin 9.8 and hematocrit 32.8. Platelets are 86,000. Sodium 143 and potassium 4.3. BUN 53 and creatinine 1.87. Calcium level is 8.2 and albumin 2.4. PROBLEMS: 1. End-stage renal disease. The patient practically has reached end-stage renal disease. She did not respond well to diuretics. Today is her third dialysis treatment. She is tolerating dialysis very well. 2. Congestive heart failure and hypervolemia. Volume status is slightly better since admission. We are removing about 1500 mL fluid today with dialysis and she is tolerating very well. We will continue with fluid removal with each dialysis. 3. Anemia. Her anemia is slightly worse. She has also developed decrease in her platelets. She is not getting any heparin during dialysis. We will continue to monitor. 4. Hyperparathyroidism. The patient remains on calcitriol 0.25 mcg three times a week. She is also on Renvela 1600 mg with meals. Her phosphorus level is only 3.3. I will cut down her Renvela dose to only 800 mg three times a day. 5. Diabetes. Her diabetes has been well controlled.
[2016-07-29] MEDS: MIRALAX *UNIT DOSE* 17GM PACKET PO SCH (20:26)
[2016-07-29] MEDS: NORCO, ANEXSIA 5/325MG TABLET (HYDROcodone/ACETAMINOPHEN) PO SCH (20:27)
[2016-07-29 20:50] VITALS: BP 131/61
[2016-07-30 05:30] VITALS: BP 139/59
[2016-07-30 05:48] LABS: MEAN CORPUSCULAR HEMOGLOBIN 33.1 pg (27.0-33.0); MEAN CORPUSCULAR VOLUME 106.9 fl (80.0-96.0); RED CELL DISTRIBUTION WIDTH 16.2 % (11.5-14.5); WHITE BLOOD COUNT 6.4 K/mm3 (4.0-10.0)
[2016-07-30 06:07] LABS: ALBUMIN 2.4 GM/DL (3.2-5.2); CREATININE FOR GFR 1.62 MG/DL (0.55-1.02); GLOMERULAR FILTRATION RATE 32.4 (>32); MAGNESIUM LEVEL 2.2 MG/DL (1.8-2.4); PHOSPHORUS LEVEL 2.4 MG/DL (2.5-4.9); POTASSIUM SERUM 4.4 MEQ/L (3.5-5.1)
[2016-07-30] MEDS: ASPIRIN 81 MG CHEW TABLET PO SCH (09:05)
[2016-07-30] MEDS: oxyBUTYnin *DITROPAN XL* 5 MG TABCR PO SCH (09:05)
[2016-07-30] MEDS: FEBUXOSTAT 40 MG TABLET (ULORIC) PO SCH (09:05)
[2016-07-30] MEDS: GABAPENTIN 100 MG CAP PO SCH ×3 (09:05→20:46)
[2016-07-30] MEDS: ACETAMINOPHEN 500 MG TAB PO SCH ×3 (09:06→20:47)
[2016-07-30] MEDS: METOPROLOL TART 25 MG TABLET PO SCH ×2 (09:07→20:46)
[2016-07-30] MEDS: NYSTATIN 100,000 UNITS/GM TOPICAL PWD 15 GM TOP SCH (09:07)
[2016-07-30] MEDS: (RENVELA) SEVELAMER **CARBONate** 800 MG TAB PO SCH ×2 (09:07→12:17)
--- NOTE | 2016-07-30 12:47 | IPNPDOC ---
Subjective Date Seen The patient was seen on 07/30/16. Subjective Chief Complaint/HPI The patient is a 80-year-old female admitted with a reason for visit of Acute Kidney Failure. General: Denies: Chills, Night Sweats Constitutional: Denies: Chills, Fever Eyes: Denies: Pain, Vision change ENT: Denies: Head Aches, Ear Pain Skin: Denies: Rash, Lesions Pulmonary: Denies: Dyspnea, Cough Cardiovascular: Denies: Chest Pain, Palpitations Gastrointestinal: Denies: Nausea, Vomiting Genitourinary: Denies: Dysuria, Frequency Hematologic: Denies: Bruising, Bleeding Excessively Objective Physical Examination General Exam: Positive: Alert, Cooperative, No Acute Distress ENT Exam: Positive: Mucous membr. moist/pink, Other ENT (right Temporal region noted to have a pulsating beat 2/2 craniotomy) Chest Exam: Positive: Clear to auscultation, Normal air movement, Other (Right IJ Dialysis Catheter noted) Heart Exam: Positive: Rate Normal, Normal S1, Normal S2 Abdomen Exam: Positive: Soft, Negative: Tenderness Extremity Exam: Positive: Other (1+ edema in the L/E B/L. Chronic leg ulcer noted on the dorsal aspect of the left leg) Assessment /Plan Plan/VTE VTE Prophylaxis Ordered?: Yes Plan Acute Kidney Injury Superimposed on Chronic Kidney Disease Baseline Stage IV kidney disease (Serum Creatinine 2.3 increased to 3.5 as outpatient) Patient started on Dialysis on this admission after her fluid overload state did not respond adequately to an increased diuretic challenge as an o/p Patient has had 3 sessions of dialysis thus far, will follow up with Nephro regarding transitioning the patient to o/p dialysis Nephrology on board Diastolic congestive heart failure The patient is currently resting comfortably on room air Lower Extremities with 2+ B/L edema--improving Patient's fluid status will be managed with Dialysis as per Nephro Coronary artery disease s/p CABG Continue Aspirin, Metoprolol 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 Hypertension Continue on metoprolol 25 mg by mouth Diuretics being held 2/2 above Thrombocytopenia Appears to be chronic as the patient was noted to have thrombocytopenia on lab work in 2014 No active bleeding noted at this time Peripheral smear pending for further delineation of etiology Deep venous thrombosis (DVT) prophylaxis TEDs Disposition-the patient is a resident of [facility], and her care will be transitioned there once she is medically optimized here. VS, I&O, 24H, Fishbone Vital Signs/I&O Vital Signs Date Time Temp Pulse Resp B/P (MAP) Pulse Ox O2 Delivery O2 Flow Rate FiO2 07/30/16 09:07 58 139/59 07/30/16 09:05 Nasal Cannula 2.0 07/30/16 05:30 98.7 17 94 I&O- Last 24 Hours up to 6 AM 07/30/16 06:00 Intake Total 1080 ml Output Total 1150 ml Balance -70 ml Laboratory Data 24H LABS Laboratory Tests 2 07/30/16 05:39: Blood Urea Nitrogen 38H, Creatinine 1.62H, Sodium Level 142, Potassium Level 4.4 , Chloride Level 110H, Carbon Dioxide Level 26, Anion Gap 6L, Glomerular Filtration Rate 32.4, Calcium Level 8.0L, Phosphorus Level 2.4#L, Magnesium Level 2.2, Albumin 2.4L CBC/BMP Laboratory Tests 07/30/16 05:39 Red Blood Count 3.07 L, Mean Corpuscular Volume 106.9 H, Mean Corpuscular Hemoglobin 33.1 H, Mean Corpuscular Hemoglobin Concent 31.0 L, Red Cell Distribution Width 16.2 H, Anion Gap 6 L NAOMI HAGAN MD July 30, 2016 12:47
[2016-07-30 14:00] VITALS: BP 147/81
[2016-07-30] MEDS: NORCO, ANEXSIA 5/325MG TABLET (HYDROcodone/ACETAMINOPHEN) PO SCH (20:47)
[2016-07-30] MEDS: MIRALAX *UNIT DOSE* 17GM PACKET PO SCH (20:47)
[2016-07-30 22:00] VITALS: BP 123/58
--- NOTE | 2016-07-31 03:22 | IPN ---
DATE OF SERVICE: 07/30/2016 Ms. James is seen this afternoon on her bedside. She underwent hemodialysis and ultrafiltration yesterday. Her family is present in the room. The patient is feeling better and her dyspnea and peripheral edema has improved. She denies any nausea or vomiting today. PHYSICAL EXAMINATION: Temperature 98.1 degrees Fahrenheit, heart rate 69 per minute and respiratory rate 18 per minute. Blood pressure 147/80 mmHg and oxygen saturation 91% on 2 liters oxygen. Her weight is down to 80.2 kg. Yesterday, her intake was 1130 and output 1150 mL. Her urine output is only 150 mL. Face is still somewhat edematous. Her neck veins are markedly distended. Neck is supple and without any thyroid enlargement. Right temporal area craniotomy defect is unchanged. Heart sounds are regular and lungs with diminished breath sounds at bases bilaterally. Abdomen: Soft and nontender. Bowel sounds are normal and there is no palpable organomegaly. Extremities have no cyanosis or clubbing. Neurologically, she is awake, alert and oriented times three. Her left hemiparesis is unchanged. Today's labs show WBC count 6.4, hemoglobin 10.2 and hematocrit 32.8. Platelets 61,000. Sodium 142 and potassium 4.4. BUN is 38 and creatinine 1.62. Calcium level is 8.0 and phosphorus 2.4. PROBLEMS: 1. End-stage renal disease. The patient has bilateral small kidneys without any hydronephrosis. She had advanced kidney disease at baseline and over last several weeks her kidney function has worsened and she has not responded to high-dose diuretics. She is currently dialysis dependent and underwent her last dialysis yesterday. She will be scheduled for another ultrafiltration or hemodialysis tomorrow. 2. Congestive heart failure/hypervolemia. Her volume status is still decompensated though improved since admission. We will try to remove another 2 liters of fluid with next ultrafiltration/hemodialysis session. 3. Anemia. Anemia is unchanged at this point. No intervention is indicated. 4. Thrombocytopenia. Her platelets are gradually deteriorating. We will not give her any heparin. She is currently not receiving any subcutaneous heparin. 5. Hyperparathyroidism. The patient has been on calcitriol and Renvela. Her phosphorus level is now low after dialysis. Her Renvela dose is being stopped completely.
[2016-07-31 05:40] VITALS: BP 154/70
[2016-07-31 05:50] LABS: MEAN CORPUSCULAR HEMOGLOBIN 33.1 pg (27.0-33.0); MEAN CORPUSCULAR HGB CONC 30.2 g/dl (32.0-36.5); MEAN CORPUSCULAR VOLUME 109.8 fl (80.0-96.0); RED CELL DISTRIBUTION WIDTH 16.2 % (11.5-14.5); WHITE BLOOD COUNT 7.1 K/mm3 (4.0-10.0)
[2016-07-31 06:11] LABS: ALBUMIN 2.6 GM/DL (3.2-5.2); CALCIUM LEVEL 8.3 MG/DL (8.8-10.2); CREATININE FOR GFR 1.63 MG/DL (0.55-1.02); GLOMERULAR FILTRATION RATE 32.2 (>32); MAGNESIUM LEVEL 2.2 MG/DL (1.8-2.4); PHOSPHORUS LEVEL 2.1 MG/DL (2.5-4.9); POTASSIUM SERUM 4.3 MEQ/L (3.5-5.1)
[2016-07-31] MEDS: FEBUXOSTAT 40 MG TABLET (ULORIC) PO SCH (07:38)
[2016-07-31] MEDS: ASPIRIN 81 MG CHEW TABLET PO SCH (07:39)
[2016-07-31] MEDS: LORATADINE 10 MG TAB PO SCH (07:39)
[2016-07-31] MEDS: CALCITRIOL 0.25 MCG CAP (S0169) PO SCH (07:39)
[2016-07-31] MEDS: oxyBUTYnin *DITROPAN XL* 5 MG TABCR PO SCH (07:39)
[2016-07-31] MEDS: METOPROLOL TART 25 MG TABLET PO SCH ×2 (07:40→21:24)
[2016-07-31] MEDS: NYSTATIN 100,000 UNITS/GM TOPICAL PWD 15 GM TOP SCH (07:40)
[2016-07-31] MEDS: GABAPENTIN 100 MG CAP PO SCH ×3 (07:40→21:24)
[2016-07-31] MEDS: ACETAMINOPHEN 500 MG TAB PO SCH ×2 (07:40→21:00)
--- NOTE | 2016-07-31 09:05 | IPNPDOC ---
Subjective Date Seen The patient was seen on 07/31/16. Subjective Chief Complaint/HPI The patient is a 80-year-old female admitted with a reason for visit of Acute Kidney Failure. General: Denies: Chills, Night Sweats Constitutional: Denies: Chills, Fever Eyes: Denies: Pain, Vision change ENT: Denies: Head Aches, Ear Pain Skin: Denies: Rash, Lesions Pulmonary: Denies: Dyspnea, Cough Cardiovascular: Denies: Chest Pain, Palpitations Gastrointestinal: Denies: Nausea, Vomiting Genitourinary: Denies: Dysuria, Frequency Objective Physical Examination General Exam: Positive: Alert, Cooperative, No Acute Distress ENT Exam: Positive: Mucous membr. moist/pink, Other ENT (right Temporal region noted to have a pulsating beat 2/2 craniotomy) Chest Exam: Positive: Clear to auscultation, Normal air movement, Other (Right IJ Dialysis Catheter noted) Heart Exam: Positive: Rate Normal, Normal S1, Normal S2 Abdomen Exam: Positive: Soft, Negative: Tenderness Extremity Exam: Positive: Other (1+ edema in the L/E B/L. Chronic leg ulcer noted on the dorsal aspect of the left leg) Assessment /Plan Plan/VTE VTE Prophylaxis Ordered?: Yes Plan Acute Kidney Injury Superimposed on Chronic Kidney Disease Baseline Stage IV kidney disease (Serum Creatinine 2.3 increased to 3.5 as outpatient) Patient started on Dialysis on this admission after her fluid overload state did not respond adequately to an increased diuretic challenge as an o/p Patient has had 3 sessions of dialysis thus far, and is scheduled for another session today Will follow up with Nephro regarding transitioning the patient to o/p dialysis Nephrology on board Diastolic congestive heart failure The patient is currently resting comfortably on room air Lower Extremities with 1+ B/L edema--improving Patient's fluid status will be managed with Dialysis as per Nephro Coronary artery disease s/p CABG Continue Aspirin, Metoprolol 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 Hypertension Continue on metoprolol 25 mg by mouth Diuretics being held 2/2 above Thrombocytopenia Appears to be chronic as the patient was noted to have thrombocytopenia on lab work in 2014 No active bleeding noted at this time Peripheral smear pending for further delineation of etiology Deep venous thrombosis (DVT) prophylaxis TEDs Disposition-the patient is a resident of [facility], and her care will be transitioned there once she is medically optimized here and has established dialysis care. VS, I&O, 24H, Fishbone Vital Signs/I&O Vital Signs Date Time Temp Pulse Resp B/P (MAP) Pulse Ox O2 Delivery O2 Flow Rate FiO2 07/31/16 08:53 Nasal Cannula 2.0 07/31/16 07:40 77 154/70 07/31/16 05:40 99.2 20 90 I&O- Last 24 Hours up to 6 AM 07/31/16 05:59 Intake Total 600 ml Output Total 0 ml Balance 600 ml Laboratory Data 24H LABS Laboratory Tests 2 07/31/16 05:33: Blood Urea Nitrogen 35H, Creatinine 1.63H, Sodium Level 143, Potassium Level 4.3 , Chloride Level 109H, Carbon Dioxide Level 28, Anion Gap 6L, Glomerular Filtration Rate 32.2, Calcium Level 8.3L, Phosphorus Level 2.1L, Magnesium Level 2.2, Albumin 2.6L CBC/BMP Laboratory Tests 07/31/16 05:33 Red Blood Count 3.09 L, Mean Corpuscular Volume 109.8 H, Mean Corpuscular Hemoglobin 33.1 H, Mean Corpuscular Hemoglobin Concent 30.2 L, Red Cell Distribution Width 16.2 H, Anion Gap 6 L NAOMI HAGAN MD July 31, 2016 09:05
[2016-07-31] MEDS ORDERED: HEPARIN 1,000 UNITS/ML 10ML VIAL (FOR RADIOLOGY& DIALYSIS ONLY) XX ONE (11:30)
--- NOTE | 2016-07-31 11:36 | IPN ---
DATE: 08/31/2016 Mrs. James is seen this morning during hemodialysis. She has minimal urine output and remains in complete renal failure. She has been dialyzed about four times last week. She still has significant hypervolemia with generalized edema and elevated neck veins. She denies any unusual dyspnea or chest pain. She has no nausea or vomiting and reports eating well this morning. On physical exam, temperature 99.2 degrees Fahrenheit, heart rate 78 per minute and respiratory rate 20 per minute. Blood pressure 154/70 mmHg and oxygen saturation 90% on 2 liters oxygen. Her face is edematous. Right-sided frontal area craniotomy defect has pulsations quite prominent. Neck is supple and jugular venous distention (JVD) is elevated. Pupils are equal and reactive to light and sclera is anicteric. Heart sounds are regular and lungs with diminished breath sounds bilaterally. Internal jugular vein dialysis catheter on right upper chest is present without any bleeding. Abdomen soft and nontender. Extremities without any cyanosis or clubbing. Skin has no rash or ulcers. Neurologically, she is at her baseline mentation. She is awake, alert and oriented times three. Her old left-sided hemiparesis is unchanged. Today's labs show WBC count 7.1, hemoglobin 10.2 and hematocrit 33.9. Platelets are 73,000. Sodium 143 and potassium 4.3. BUN 35 and creatinine 1.63. Calcium 8.3 and phosphorus 2.1. PROBLEMS: 1. End-stage renal disease. The patient is being dialyzed today for ultrafiltration. She had four dialysis treatments last week. She has minimal urine output and almost no kidney function. We plan to dialyze her again tomorrow. 2. Generalized edema and hypervolemia. The patient remains edematous with minimal urine output. She has not responded well to high-dose diuretics due to advanced renal failure. We are removing about 3 liters of fluid with ultrafiltration today. She is tolerating fluid removal well. 3. Anemia and thrombocytopenia. At present, her anemia is stable and platelets are also slightly better. No heparin is being used during dialysis. At present, she does not need any intervention for her anemia as it is likely to improve further with fluid removal. 4. Gout. The patient remains on Uloric 80 mg daily. 5. Disposition. I have requested [facility] to arrange for outpatient dialysis so the patient can be transferred back to the [facility].
[2016-07-31 14:00] VITALS: BP 149/68
[2016-07-31] MEDS: MIRALAX *UNIT DOSE* 17GM PACKET PO SCH (21:00)
[2016-07-31] MEDS: NORCO, ANEXSIA 5/325MG TABLET (HYDROcodone/ACETAMINOPHEN) PO SCH (21:24)
[2016-07-31 22:00] VITALS: BP 115/70
[2016-08-01 06:00] VITALS: BP 162/76
[2016-08-01] MEDS: METOPROLOL TART 25 MG TABLET PO SCH ×2 (06:34→20:33)
[2016-08-01] MEDS: oxyBUTYnin *DITROPAN XL* 5 MG TABCR PO SCH (06:34)
[2016-08-01] MEDS: ACETAMINOPHEN 500 MG TAB PO SCH ×2 (06:34→20:33)
[2016-08-01] MEDS: ASPIRIN 81 MG CHEW TABLET PO SCH (06:34)
[2016-08-01] MEDS: GABAPENTIN 100 MG CAP PO SCH ×3 (06:34→20:33)
[2016-08-01] MEDS: NYSTATIN 100,000 UNITS/GM TOPICAL PWD 15 GM TOP SCH (06:35)
[2016-08-01] MEDS: FEBUXOSTAT 40 MG TABLET (ULORIC) PO SCH (06:40)
[2016-08-01 06:52] LABS: MEAN CORPUSCULAR HEMOGLOBIN 32.1 pg (27.0-33.0); MEAN CORPUSCULAR HGB CONC 29.2 g/dl (32.0-36.5); MEAN CORPUSCULAR VOLUME 109.9 fl (80.0-96.0); RED CELL DISTRIBUTION WIDTH 16.3 % (11.5-14.5); WHITE BLOOD COUNT 8.2 K/mm3 (4.0-10.0)
[2016-08-01 07:13] LABS: ALBUMIN 2.6 GM/DL (3.2-5.2); CALCIUM LEVEL 8.2 MG/DL (8.8-10.2); CREATININE FOR GFR 1.47 MG/DL (0.55-1.02); GLOMERULAR FILTRATION RATE 36.2 (>32); MAGNESIUM LEVEL 2.2 MG/DL (1.8-2.4); PHOSPHORUS LEVEL 1.9 MG/DL (2.5-4.9); POTASSIUM SERUM 4.3 MEQ/L (3.5-5.1)
[2016-08-01] MEDS ORDERED: HEPARIN 1,000 UNITS/ML 10ML VIAL (FOR RADIOLOGY& DIALYSIS ONLY) XX ONE (11:15)
[2016-08-01 13:55] VITALS: BP 147/70
--- NOTE | 2016-08-01 14:42 | IPNPDOC ---
Text Note Date of Service The patient was seen on 08/01/16. NOTE Subjective: Patient is an 80 year old female with a PMHx of CAD s/p CABG, CVA w/ R sided hemiparesis, CKD4, Anxiety, Gout and PUD (w/ history of bleed) who was sent to the ED because of worsening renal function. Patient had noted to be fatigued and tired, weight gain and lower extremity edema. She was admitted to medical surgical floor because of renal failure. Patient was seen and examined at the bedside. Does not have any complaints today. Notes that her swelling in her LE has improved. Objective: Vitals (See below) General: Lying in bed, no acute distress, comfortable, AAOx3 HEENT: NC, AT, Right jain with pulsating mass CVS: RRR, +S1S2 Lungs: Fair air entry b/l, -w/r/r Abdomen: Soft, ND, NT, +BSx4 Extremities: +PPx4, No appreciable edema, - Calf tenderness Assessment and plan: 1. Acute kidney injury on CKD4 - Symptoms of dizziness, fatigue, edema - Physical reveals improvement in LE edema; no euvolemic at this time - s/p 4 sessions of HD last week - Will got for HD today for ultrafiltration - Working with case management to establish outpatient HD and to ensure [place] will arrange for transport - Nephrology (Dr. Noble) following 2. Diastolic CHF - Reports improvement in her breathing - Still uses nasal cannula oxygen - will c/w ultrafiltration to remove excessive fluid - Will try and keep negative fluid balance 3. CAD s/p CABG - c/w ASA and metoprolol 4. Ruptured Cerebral Aneurysm - s/p R sided carniotomy - Physical reveals left sided hemiplegia - c/w ASA 5. Gout - c/w uloric 6. HTN - BP well controlled - c/w metoprolol with holding parameters 7. Thrombocytopenia - Platelet count remains stable - No evidence of bleeding 8. DVT prophylaxis - c/w SCDs Disposition: - Patient is a resitent of [facility] - Will be discharged to [place] when outpatient HD is established VS,Fishbone, I+O VS, Fishbone, I+O Laboratory Tests 08/01/16 06:15 Red Blood Count 3.12 L, Mean Corpuscular Volume 109.9 H, Mean Corpuscular Hemoglobin 32.1, Mean Corpuscular Hemoglobin Concent 29.2 L, Red Cell Distribution Width 16.3 H, Anion Gap 5 L Vital Signs Date Time Temp Pulse Resp B/P (MAP) Pulse Ox O2 Delivery O2 Flow Rate FiO2 08/01/16 08:08 Nasal Cannula 2.0 08/01/16 06:00 98.4 89 20 162/76 (104) 93 I&O- Last 24 Hours up to 6 AM 08/01/16 06:00 Intake Total 700 ml Output Total 125 ml Balance 575 ml RUPA MENDOZA MD August 01, 2016 14:42
[2016-08-01] MEDS: MIRALAX *UNIT DOSE* 17GM PACKET PO SCH (20:34)
[2016-08-01] MEDS: NORCO, ANEXSIA 5/325MG TABLET (HYDROcodone/ACETAMINOPHEN) PO SCH (20:34)
--- NOTE | 2016-08-01 21:07 | IPN ---
DATE: 08/01/2016 Ms. James is seen this morning on her bedside during dialysis. She is undergoing another session of ultrafiltration today due to oliguric renal failure and generalized edema with volume overload. She continues to be oxygen dependent, but denies any chest pain or palpitations. She reports no nausea or vomiting. She has no fever or chills. PHYSICAL EXAMINATION: Temperature 98.4 degrees Fahrenheit, heart rate 80 per minute and respiratory rate 20 per minute. Blood pressure 162/76 mmHg and oxygen saturation 93% on 2 liters oxygen. Intake and output records from yesterday show a urine output only 125 mL. We took off about 3 liters with hemodialysis. Her head is atraumatic. Old craniotomy defect in right temporal area is still pulsatile. Neck veins are about 9 cm above sternal angle. Neck is supple and without thyroid enlargement. Ears, nose and throat are unremarkable. Pupils are equal and reactive to light and sclera is anicteric. Heart sounds are regular and lungs with diminished breath sounds at bases. Abdomen is soft and nontender and without a palpable organomegaly. Bowel sounds are normal. Extremities have no cyanosis or clubbing. Peripheral edema has improved; however, not resolved as yet. Neurologically, she is awake, alert and oriented times three. Her chronic left-sided hemiparesis is unchanged. Today's labs show WBC count 8.2, hemoglobin 10.0 and hematocrit 34.3. Sodium 142 and potassium 4.3. BUN 32 and creatinine 1.47. Calcium 8.2 and phosphorus 1.9. PROBLEMS: 1. Acute renal failure superimposed on chronic kidney disease. The patient has been dialyzed for the last several days. She remains grossly volume overloaded with minimal urine output. At present, we will continue to monitor her kidney function while we are dialyzing. 2. Volume overload with generalized edema. Her volume status is still decompensated though improved significantly since admission. She is being ultra filtrated today for 3 liters of fluid removal, which she is tolerating well so far. 3. Anemia. Her anemia is unchanged and stable. No intervention is indicated at this point. 4. Hypophosphatemia. Her phosphorus is slightly below normal. We have already stopped her phosphate binder. This could be nutritional, and we will recheck her renal profile tomorrow morning. 5. Gout. The patient has been asymptomatic on Uloric 80 mg daily. We will check her uric acid level tomorrow and consider to cutdown her Uloric dose if needed. DISPOSITION: I would feel that the patient could probably be discharged in next 24 hours as she will go back to the care home and will be followed up in outpatient dialysis facility.
[2016-08-01 22:00] VITALS: BP 136/69
[2016-08-02 06:00] VITALS: BP 132/70
[2016-08-02 07:16] LABS: MEAN CORPUSCULAR HEMOGLOBIN 33.4 pg (27.0-33.0); MEAN CORPUSCULAR HGB CONC 30.1 g/dl (32.0-36.5); MEAN CORPUSCULAR VOLUME 110.8 fl (80.0-96.0); RED CELL DISTRIBUTION WIDTH 16.3 % (11.5-14.5); WHITE BLOOD COUNT 9.4 K/mm3 (4.0-10.0)
[2016-08-02 07:36] LABS: ALBUMIN 2.6 GM/DL (3.2-5.2); CREATININE FOR GFR 1.81 MG/DL (0.55-1.02); GLOMERULAR FILTRATION RATE 28.5 (>32); MAGNESIUM LEVEL 2.1 MG/DL (1.8-2.4); POTASSIUM SERUM 4.9 MEQ/L (3.5-5.1)
[2016-08-02] MEDS: FEBUXOSTAT 40 MG TABLET (ULORIC) PO SCH (08:45)
[2016-08-02] MEDS: LORATADINE 10 MG TAB PO SCH (08:46)
[2016-08-02] MEDS: CALCITRIOL 0.25 MCG CAP (S0169) PO SCH (08:46)
[2016-08-02] MEDS: ACETAMINOPHEN 500 MG TAB PO SCH (08:46)
[2016-08-02] MEDS: GABAPENTIN 100 MG CAP PO SCH (08:46)
[2016-08-02] MEDS: ASPIRIN 81 MG CHEW TABLET PO SCH (08:46)
[2016-08-02 08:47] VITALS: BP 132/70
[2016-08-02] MEDS: oxyBUTYnin *DITROPAN XL* 5 MG TABCR PO SCH (08:47)
[2016-08-02] MEDS: NYSTATIN 100,000 UNITS/GM TOPICAL PWD 15 GM TOP SCH (08:47)
[2016-08-02] MEDS: METOPROLOL TART 25 MG TABLET PO SCH (08:47)
--- NOTE | 2016-08-02 15:01 | DSES ---
DATE OF ADMISSION: 07/26/2016 DATE OF DISCHARGE: 08/02/2016 ATTENDING PHYSICIAN: Dr. Marisa Pelaez and Dr. Gray Rodriguez REFERRING PHYSICIAN: None. CONSULTING PHYSICIANS: Héctor Jose MD, and Vernon Noble MD CONDITION ON DISCHARGE: Stable. FINAL DIAGNOSES: 1. Acute kidney injury on chronic kidney disease. 2. Diastolic congestive heart failure. PROCEDURES: The patient had a interventional radiology guided tunnel catheter placement on 07/27/2016. HISTORY OF PRESENT ILLNESS: The patient is an 80-year-old female with a past medical history of coronary artery disease, status post coronary artery bypass graft (CABG), history of cerebrovascular accident with right-sided hemiparesis, chronic kidney disease IV, anxiety, gout, and peptic ulcer disease with history of bleed, who was sent to the emergency room (ER) because of worsening renal function. The patient had noted to be fatigued and tired, weight gain, and lower extremity edema upon presentation. The patient received outpatient Lasix but failed to improve and was sent to the emergency room. HOSPITAL COURSE: 1. Acute kidney injury on chronic kidney disease IV. Symptoms of dizziness, fatigue, and edema. Physical reveals improvement in lower extremity edema. Was hypervolemic upon presentation but is euvolemic upon discharge. She received several sessions of hemodialysis after she had her tunnel catheter placement. Case management has established outpatient hemodialysis and nephrology, Dr. Noble and Dr. Jose were consulted. 2. Diastolic congestive heart failure. Reports improvement in her breathing. Has been using nasal cannula oxygen and supplementation. Received hemodialysis to become euvolemic. Maintain negative fluid balance. 3. Coronary artery disease, status post coronary artery bypass graft. Continue with aspirin and metoprolol. 4. Ruptured cerebral aneurysm, status post right-sided craniotomy. Physical reveals left-sided hemiplegia. Continue with aspirin. 5. Gout. Continue with Uloric. 6. Hypertension. Blood pressure remains well controlled. Continue with metoprolol and holding parameters. 7. Thrombocytopenia. Platelet count remains stable. No evidence of bleeding. 8. Deep venous thrombosis (DVT) prophylaxis. Continue with sequential compression devices. DISCHARGE MEDICATIONS: The patient will be discharged home on the following medication list: - acetaminophen 1000 mg by mouth twice a day - hydrocodone/acetaminophen 5/325 one tablet by mouth nightly - albuterol sulfate inhaled every 2 hours as needed shortness of breath - ascorbic acid 500 mg by mouth each evening - aspirin 81 mg by mouth every day - calcitriol 0.25 mcg by mouth three times a week - Uloric 80 mg every day - gabapentin 100 mg by mouth three times a day - loratadine 10 mg by mouth every 2 days - melatonin 3 mg by mouth nightly - metoprolol 25 mg by mouth twice a day - Nystatin one dose topically as directed - oxybutynin 5 mg by mouth daily - polyethylene glycol one packet by mouth each evening - Fleet enema to be taken as needed - no bowel movement Stopped medications include: - bisacodyl 10 mg per rectum daily as needed constipation - budesonide 2 mg by mouth twice a day - metolazone 2.5 mg by mouth twice a day - ondansetron 4 mg by mouth every 6 hours as needed nausea and vomiting - spironolactone 25 mg by mouth twice a day DISCHARGE INSTRUCTIONS: The patient has been advised to followup with her primary care provider and nephrology within the next 7 days. She has been advised to remain compliant with treatment and medications and return to the emergency room if she experience any problems. TIME SPENT ON DISCHARGE: 35 minutes. Edited 08/02/2016 aml
--- NOTE | 2016-08-03 10:39 | IPN ---
DATE: 08/02/2016 Mrs. James is seen this morning on her bedside. She is feeling better and wants to be discharged. She denies any nausea or vomiting. Her peripheral edema has improved significantly. She has been on chronic oxygen 2 liters. PHYSICAL EXAMINATION Temperature 98.5 degrees Fahrenheit, heart rate 70 per minute and respiratory rate 20 per minute. Blood pressure 132/70 mmHg and oxygen saturation 96% on 2 liters oxygen. Head is atraumatic. Old right temporal defect is unchanged with pulsations. Neck is supple and jugular venous distention (JVD) is still elevated up to angle of jaw. Dialysis catheter is in place in right internal jugular vein without any signs of infection or bleeding. Heart sounds are regular and lungs with good bilateral air entry. Abdomen is soft and nontender. Extremities without any cyanosis or clubbing. Skin without any rash or ulcers. Neurologically, she is awake, alert and oriented times three. Left-sided hemiparesis is old and unchanged. Today's labs show WBC count 9.4, hemoglobin 10.2 and hematocrit 33.7. Platelets 71,000. Sodium 140 and potassium 4.9. BUN 38 and creatinine 1.81. Uric acid level is 2.0 and calcium 8.0. Phosphorus is 2.0 and magnesium 2.1. PROBLEMS: 1. End-stage renal disease. The patient has minimal urine output and she is practically now end-stage renal disease. She remains dialysis dependent. We will continue dialysis as an outpatient and she is scheduled for next treatment on August 03. 2. Generalized edema and congestive heart failure. Volume status has improved significantly with aggressive fluid removal with hemodialysis. The patient will be dialyzed again tomorrow, and we will continue to remove at least 3 liters of fluid every day. Once she achieves a dry weight then we will maintain her weight. 3. Anemia. Her anemia has been stable, and she has not required any treatment so far. She will be managed as outpatient. 4. Gout. She does have history of gout and was on Uloric. Now her uric acid level is low so her Uloric can be stopped. 5. Hypophosphatemia. This is nutritional and we anticipate that her appetite will now improve and she will eat better. She is currently not on any phosphate binders. DISPOSITION: The patient can be discharged to care home today and she will perform next hemodialysis as an outpatient on August 03.
== END 2016-08-02 12:38 | DRG 682 ==
LOC: M ED 17:31 → M ED INP 19:53 → M MSPAV 22:00
PROVIDERS: ADMIT Internal Medicine; ATTEND Internal Medicine
PROC: 02H633Z Insertion of Infusion Device into Right Atrium, Percutaneous Approach (ICD-10-PCS; 2016-07-27)
PROC: 5A1D60Z (ICD-10-PCS; principal; 2016-07-28)
DX: N17.9 Acute kidney failure, unspecified (principal); I50.33 Acute on chronic diastolic (congestive) heart failure; I69.354 Hemiplegia and hemiparesis following cerebral infarction affecting left non-dominant side; I13.0 Hypertensive heart and chronic kidney disease with heart failure and stage 1 through stage 4 chronic kidney disease, or unspecified chronic kidney disease; L97.929 Non-pressure chronic ulcer of unspecified part of left lower leg with unspecified severity; N18.6 End stage renal disease; I25.10 Atherosclerotic heart disease of native coronary artery without angina pectoris; F41.9 Anxiety disorder, unspecified; D63.1 Anemia in chronic kidney disease; N25.81 Secondary hyperparathyroidism of renal origin; J44.9 Chronic obstructive pulmonary disease, unspecified; R32 Unspecified urinary incontinence; M10.30 Gout due to renal impairment, unspecified site; D69.6 Thrombocytopenia, unspecified; Z87.442 Personal history of urinary calculi; Z95.1 Presence of aortocoronary bypass graft; Z87.891 Personal history of nicotine dependence; Z88.0 Allergy status to penicillin; Z88.1 Allergy status to other antibiotic agents; Z88.8 Allergy status to other drugs, medicaments and biological substances; Z79.82 Long term (current) use of aspirin; Z79.899 Other long term (current) drug therapy; Z95.2 Presence of prosthetic heart valve; Z86.79 Personal history of other diseases of the circulatory system